=== PATIENT | female | born 1945 | race Caucasian/White ===

== ENCOUNTER 2016-08-30 07:03 | Day surgery (SDC) | payer MEDICARE, OTHER ==
[2016-08-30] VITALS (7 sets, daily range): BP systolic 109–142; BP diastolic 37–64; PULSE 43–58; TEMP 97.3–97.7
[~2016-08-30] VITALS: Ht 154.9 cm; Wt 70.7 kg
[~2016-08-30 07:03] MED LIST: ASPIR-LOW81 MG PO; ATORVASTATIN; LORTAB 5/500 501 TAB PO
[2016-08-30] MEDS ORDERED: DECADRON 4MG TAB4 MG PO (07:39)
[2016-08-30] MEDS ORDERED: SYNTHROID 0.0.025 MG PO (07:39)
[2016-08-30] MEDS ORDERED: HCTZ 25MG TAB25 MG PO (07:40)
[2016-08-30] MEDS ORDERED: TOPROL XL 50MG50 MG PO (07:40)
[2016-08-30] MEDS ORDERED: ZOFRAN 4MG T4 MG/TAB PO (07:41)
[2016-08-30] MEDS ORDERED: NORCO 325 MG-51 TAB PO (07:42)
== END 2016-08-30 11:45 | disposition home or self-care (01) ==
LOC: SDCO 07:03
DX: C78.6 Secondary malignant neoplasm of retroperitoneum and peritoneum (principal); I10 Essential (primary) hypertension; E78.5 Hyperlipidemia, unspecified; E03.9 Hypothyroidism, unspecified; M85.80 Other specified disorders of bone density and structure, unspecified site; Z79.899 Other long term (current) drug therapy
CPT/HCPCS: C1788; J0690; J1644; J1885; J2250; J2405; J2704; J2765; J3010; J7120

== ENCOUNTER → 2016-10-21 | Outpatient (CLI) | payer MEDICARE, OTHER ==
[~2016-10-21] MED LIST changes: +COMPAZINE 110 MG/TAB PO; +DECADRON 4MG TAB4 MG PO; +DOXYCYCLINE 10100 MG PO; +ELIQUIS 5MG PO; +HCTZ 25MG TAB25 MG PO; +IMODIUM 2MG CAPS2 MG PO; +NORCO 325 MG-51 TAB PO; +PRILOSEC 20MG20 MG PO; +SYNTHROID 0.0.025 MG PO; +TAXOL30 IV; +TOPROL XL 50MG50 MG PO; +ZOFRAN 4MG T4 MG/TAB PO
== END ==
LOC: COL.VAS 10:23
DX: I82.432 Acute embolism and thrombosis of left popliteal vein (principal); I82.492 Acute embolism and thrombosis of other specified deep vein of left lower extremity; Z86.718 Personal history of other venous thrombosis and embolism; R52 Pain, unspecified

== ENCOUNTER 2016-10-27 07:00 | Outpatient (RCR) | payer MEDICARE, OTHER ==
[2016-10-27] VITALS (10 sets, daily range): BP systolic 108–131; BP diastolic 39–78; PULSE 50–76; TEMP 97.2–98.7
[~2016-10-27] VITALS: Ht 154.9 cm; Wt 61.0 kg
[~2016-10-27 07:00] MED LIST changes: -COMPAZINE 110 MG/TAB PO; -DOXYCYCLINE 10100 MG PO; -ELIQUIS 5MG PO; -IMODIUM 2MG CAPS2 MG PO; -PRILOSEC 20MG20 MG PO; -TAXOL30 IV
[2016-10-27] MEDS ORDERED: ELIQUIS 5MG PO (07:49)
[2016-10-27] MEDS ORDERED: PRILOSEC 20MG20 MG PO (07:49)
[2016-10-27] MEDS ORDERED: IMODIUM 2MG CAPS2 MG PO (07:50)
[2016-10-27] MEDS ORDERED: COMPAZINE 110 MG/TAB PO (07:52)
[2016-10-27] MEDS ORDERED: TAXOL30 IV (07:57)
== END 2016-10-27 15:45 | disposition home or self-care (01) ==
LOC: EUO 07:00
DX: C48.2 Malignant neoplasm of peritoneum, unspecified (principal)
CPT/HCPCS: J1644; J7050; P9016

== ENCOUNTER 2016-10-29 10:25 | Emergency (ER) | payer MEDICARE, OTHER ==
[~2016-10-29] VITALS: Ht 152.4 cm; Wt 62.1 kg
[~2016-10-29 10:25] MED LIST changes: +COMPAZINE 110 MG/TAB PO; +ELIQUIS 5MG PO; +IMODIUM 2MG CAPS2 MG PO; +PRILOSEC 20MG20 MG PO; +TAXOL30 IV
[2016-10-29 10:33] VITALS: BP 156/80; TEMP 98.3
[2016-10-29] MEDS ORDERED: DOXYCYCLINE 10100 MG PO (11:47)
[2016-10-29 12:28] VITALS: PULSE 95
== END 2016-10-29 12:29 | disposition home or self-care (01) ==
LOC: COL.ER 10:25
DX: S20.162A Insect bite (nonvenomous) of breast, left breast, initial encounter (principal); W57.XXXA Bitten or stung by nonvenomous insect and other nonvenomous arthropods, initial encounter; C48.2 Malignant neoplasm of peritoneum, unspecified; Z79.899 Other long term (current) drug therapy

== ENCOUNTER → 2016-11-23 | Outpatient (CLI) | payer MEDICARE, OTHER ==
[~2016-11-23] VITALS: Ht 153.7 cm; Wt 59.4 kg
[~2016-11-23] MED LIST changes: +DOXYCYCLINE 10100 MG PO
== END ==
LOC: SUN.DT 14:57
DX: C48.2 Malignant neoplasm of peritoneum, unspecified (principal); R63.4 Abnormal weight loss; Z71.3 Dietary counseling and surveillance; Z68.25 Body mass index [BMI] 25.0-25.9, adult

== ENCOUNTER 2017-02-10 09:00 | Day surgery (SDC) | payer MEDICARE ==
[~2017-02-10] VITALS: Ht 153.7 cm; Wt 51.3 kg
[2017-02-10 09:17] VITALS: BP 152/69; PULSE 60; TEMP 97.1
[2017-02-10] MEDS ORDERED: SYNTHROID0.2 MG/TAB PO (09:51)
[2017-02-10] MEDS ORDERED: ROXICODONE 55 MG/TAB PO (09:52)
[2017-02-10 10:30] VITALS: BP 119/62; PULSE 52
[2017-02-10 10:45] VITALS: BP 129/55; PULSE 46
[2017-02-10 11:00] VITALS: BP 137/74; PULSE 50
[2017-02-10 11:30] VITALS: BP 137/72; PULSE 77
== END 2017-02-10 11:34 | disposition home or self-care (01) ==
LOC: SDCO 09:00
DX: K21.9 Gastro-esophageal reflux disease without esophagitis (principal); K30 Functional dyspepsia; C56.9 Malignant neoplasm of unspecified ovary; Z90.710 Acquired absence of both cervix and uterus; E78.00 Pure hypercholesterolemia, unspecified; K58.9 Irritable bowel syndrome, unspecified; K57.30 Diverticulosis of large intestine without perforation or abscess without bleeding; C48.2 Malignant neoplasm of peritoneum, unspecified; I10 Essential (primary) hypertension
CPT/HCPCS: J1644; J2704; J7030

== ENCOUNTER → 2017-03-15 | Outpatient (REF) ==
[~2017-03-15] MED LIST changes: +PEPCID 20MG TAB20 MG PO; +ROXICODONE 55 MG/TAB PO; +SENOKOT8.6 MG PO; +SYNTHROID0.2 MG/TAB PO
[2017-03-15 10:56] LABS: BASO % 0.4 % (0.0-2.0); EOS % 0.4 % (0-4.0); GRAN # 2.2 (1.4-6.5); GRAN % 44.7 % (42.2-75.2); LYMPH # 2.3 (1.2-3.4); LYMPH % 45.6 % (20.0-51.0); MEAN CELL VOLUME 95 fl (80.0-100.0); MEAN CORPUSCULAR HGB CONC 33 g/dl (33.0-37.0); MEAN PLATELET VOLUME 10.9 fl (7.4-10.4); MONO # 0.4 (0.1-0.6); MONO % 7.5 % (1.7-9.3); PLATELET COUNT 111 K/mm3 (130-400); RED BLOOD COUNT 3.24 M/mm3 (4.10-5.30)
[2017-03-15 10:57] LABS: HEMATOCRIT 30.8 % (37.0-47.0); HEMOGLOBIN 10.1 g/dl (12.5-16.0); MEAN CORPUSCULAR HEMOGLOBIN 31 pg (27.0-31.0)
[2017-03-15 11:51] LABS: ADJUSTED CALCIUM 10.5 mg/dL (8.4-10.2); ALBUMIN 2.8 gm/dL (3.5-5.0); BILIRUBIN,TOTAL 0.4 mg/dL (0.0-1.0); CALCIUM 9.5 mg/dL (8.4-10.2); CREATININE, serum 0.44 mg/dL (0.52-1.25); MAGNESIUM 1.3 mg/dL (1.6-2.3); POTASSIUM 3.9 mmol/L (3.4-5.0); TOTAL PROTEIN 5.1 gm/dL (6.4-8.2)
== END ==
LOC: ZCOL.LAB 10:43
PROVIDERS: Internal Medicine
DX: C56.9 Malignant neoplasm of unspecified ovary (principal); E43 Unspecified severe protein-calorie malnutrition

== ENCOUNTER 2017-08-31 15:06 | Emergency (ER) | payer MEDICARE ==
[~2017-08-31] VITALS: Ht 154.9 cm; Wt 49.1 kg
[~2017-08-31 15:06] MED LIST changes: +ELIQUIS 5MG PEG; -ELIQUIS 5MG PO; +PEPCID 20MG TAB20 MG PEG; -PEPCID 20MG TAB20 MG PO; +ROXICODONE 55 MG/TAB PEG; -ROXICODONE 55 MG/TAB PO; +SYNTHROID0.2 MG/TAB PEG; -SYNTHROID0.2 MG/TAB PO
[2017-08-31 15:10] VITALS: BP 156/69; TEMP 97.5
[2017-08-31] MEDS ORDERED: LOPRESSOR 225 MG/TAB PEG (15:44)
[2017-08-31] MEDS ORDERED: MAGNESIUM200 MG PEG (15:46)
[2017-08-31] MEDS ORDERED: [UNRECOGNIZED DRUG - OTHER] IV (15:47)
[2017-08-31] MEDS ORDERED: AVASTIN 100M25 MG/ML IV (15:47)
[2017-08-31] MEDS ORDERED: MIRALAX PA17 GM/Dose PO (15:48)
[2017-08-31 16:52] VITALS: PULSE 77
== END 2017-08-31 16:53 | disposition home or self-care (01) ==
LOC: COL.ER 15:06
DX: K94.23 Gastrostomy malfunction (principal); I10 Essential (primary) hypertension; E03.9 Hypothyroidism, unspecified; Z85.43 Personal history of malignant neoplasm of ovary; Z79.01 Long term (current) use of anticoagulants

== ENCOUNTER 2017-09-01 17:05 | Emergency (ER) | payer MEDICARE ==
[~2017-09-01] VITALS: Ht 152.4 cm; Wt 49.1 kg
[~2017-09-01 17:05] MED LIST changes: +AVASTIN 100M25 MG/ML IV; +LOPRESSOR 225 MG/TAB PEG; +MAGNESIUM200 MG PEG; +MIRALAX PA17 GM/Dose PO; +[UNRECOGNIZED DRUG - OTHER] IV
[2017-09-01 18:26] VITALS: BP 162/71; PULSE 82; TEMP 98.8
== END 2017-09-01 18:20 | disposition home or self-care (01) ==
LOC: COL.ER 17:05
DX: Z43.1 Encounter for attention to gastrostomy (principal); Z79.01 Long term (current) use of anticoagulants

== ENCOUNTER 2017-11-08 15:11 | Emergency (ER) | payer MEDICARE ==
[~2017-11-08] VITALS: Ht 165.1 cm; Wt 48.6 kg
[2017-11-08 15:14] VITALS: TEMP 97.5
[2017-11-08] MEDS ORDERED: CLARITIN 1010 MG/TAB PO (15:55)
[2017-11-08 16:03] VITALS: BP 137/62; PULSE 64
== END 2017-11-08 15:58 | disposition home or self-care (01) ==
LOC: COL.ER 15:11
DX: K94.23 Gastrostomy malfunction (principal)

== ENCOUNTER 2018-05-19 14:24 | Emergency (ER) | payer MEDICARE ==
[~2018-05-19] VITALS: Ht 154.9 cm; Wt 49.1 kg
[~2018-05-19 14:24] MED LIST changes: +CLARITIN 1010 MG/TAB PO
[2018-05-19 14:44] VITALS: BP 137/64; TEMP 98.7
[2018-05-19] MEDS ORDERED: ZOFRAN8 MG PO (15:07)
[2018-05-19 16:00] VITALS: PULSE 62
== END 2018-05-19 16:10 | disposition home or self-care (01) ==
LOC: COL.ER 14:24
DX: K94.23 Gastrostomy malfunction (principal); I10 Essential (primary) hypertension

== ENCOUNTER 2018-10-27 19:54 | Emergency (ER) | payer MEDICARE ==
[~2018-10-27] VITALS: Ht 154.9 cm; Wt 49.1 kg
[~2018-10-27 19:54] MED LIST changes: +ZOFRAN8 MG PO
[2018-10-27 20:00] VITALS: TEMP 98.5
[2018-10-27 21:04] VITALS: BP 117/55; PULSE 68
== END 2018-10-27 21:53 | disposition home or self-care (01) ==
LOC: COL.ER 19:54
DX: K94.23 Gastrostomy malfunction (principal)